=== PATIENT | female | born 1950 | race Caucasian/White ===

== ENCOUNTER 2021-04-14 11:21 | Outpatient (CLI) | payer MEDICARE | END 2021-04-14 11:22 | disposition home or self-care (01) | LOC: BURRAD 11:21 | PROVIDERS: ATTEND Physician Assistant | DX: M17.11 Unilateral primary osteoarthritis, right knee (principal) ==

== ENCOUNTER 2022-01-23 12:07 | Emergency (ER) | payer MEDICARE ==
[2022-01-23] MEDS ORDERED: Boostrix 0.5 ML (Tdap) VIAL ONE (12:31)
== END 2022-01-23 12:55 | disposition home or self-care (01) ==
LOC: BURERS 12:07
DX: S61.411A Laceration without foreign body of right hand, initial encounter (principal); Z23 Encounter for immunization; E78.00 Pure hypercholesterolemia, unspecified; W26.8XXA Contact with other sharp object(s), not elsewhere classified, initial encounter
CPT/HCPCS: 90471; 90715; 99282

== ENCOUNTER 2025-03-20 16:32 | Outpatient (CLI) | payer MEDICARE | END 2025-03-20 16:33 | disposition home or self-care (01) | LOC: BURRAD 16:32 | PROVIDERS: ATTEND Nurse Practitioner Family | DX: M79.671 Pain in right foot (principal) ==